=== PATIENT | male | born 1945 | race American Indian/Alaskan Native ===

== ENCOUNTER 2021-03-16 04:57 | Emergency (ER) | payer MEDICARE ==
[2021-03-16 05:22] VITALS: BP 138/87
[2021-03-16] MEDS ORDERED: WATER FOR IRRIG STERILE 250 ML BOTTLE IR ONE (06:49)
[2021-03-16] MEDS ORDERED: SODIUM CHLORIDE IRRI 500 ML 500 ML IR ONE (06:54)
[2021-03-16] MEDS ORDERED: oxyCODONE /ACETAMINOPHEN 5-325MG TAB PO ONE (07:07)
--- NOTE | 2021-03-16 07:50 | Emergency Department Report ---
ED Recheck HPI - General Chief Complaint: Urogenital-Male Stated Complaint: ABD PAIN/GROIN PAIN Time Seen by Provider: 03/16/21 07:22 Source: patient, family Mode of arrival: Ambulatory Limitations: No Limitations - History of Present Illness Initial Comments: 76 [place] he has a sanchez and it has not drained. He is in 10/10 pain. RN has been unable to flush and drain sanchez. states this happens often and they are in discussions with their primary physicians about a suprapubic catheter. MD Complaint: other Symptoms Since Prior Visit: no new symptoms - Related Data Allergies Allergy/AdvReac Type Severity Reaction Status Date / Time No Known Allergies Allergy Unverified 03/16/21 05:19 ED Review of Systems ROS: Stated complaint: ABD PAIN/GROIN PAIN Other details as noted in HPI Comment: All other systems reviewed and negative ED Past Medical Hx - Past Medical History Previous Medical History?: Yes Additional medical history: parkinsons disease. urinary retention with sanchez cath - Surgical History Past Surgical History?: Yes - Family History Family history: no significant - Social History Smoking Status: Never Smoker Substance Use Type: None ED Physical Exam - General Limitations: No Limitations General appearance: alert - Head Head exam: Present: atraumatic, normocephalic - Eye Eye exam: Present: normal appearance - ENT ENT exam: Present: mucous membranes moist - Neck Neck exam: Present: normal inspection - Respiratory Respiratory exam: Present: normal lung sounds bilaterally. Absent: respiratory distress - Cardiovascular Cardiovascular Exam: Present: regular rate, normal rhythm, tachycardia. Absent: systolic murmur, diastolic murmur, rubs, gallop - GI/Abdominal GI/Abdominal exam: Present: soft, normal bowel sounds - Rectal Rectal exam: Present: deferred - exam: Present: other - Extremities Exam Extremities exam: Present: normal inspection - Back Exam Back exam: Present: normal inspection - Neurological Exam Neurological exam: Present: alert, oriented X3 - Psychiatric Psychiatric exam: Present: flat affect - Skin Skin exam: Present: warm, dry, intact, normal color. Absent: rash ED Course Vital Signs 03/16/21 05:21 Temperature 97.7 F Pulse Rate 106 H Respiratory 18 Rate Blood Pressure 138/87 [Right] O2 Sat by Pulse 96 Oximetry ED Recheck [facility] - Core Measures Measure Exclusions: not indicated - Medical Decision Making KATIE placed new 20 F straight sanchez cath p RN was unable to flush/drain sanchez 800 ml urine obtained from cath sanchez to leg bag dc home with dc plan of care and pcp follow up.Pt and verbalize understanding of plan of care. Vital Signs 03/16/21 05:21 Temperature 97.7 F Pulse Rate 106 H Respiratory 18 Rate Blood Pressure 138/87 [Right] O2 Sat by Pulse 96 Oximetry Critical care attestation.: If time is entered above; I have spent that time in minutes in the direct care of this critically ill patient, excluding procedure time. ED Disposition Clinical Impression: Encounter for Sanchez catheter replacement, Urinary retention Disposition: DC-01 TO HOME OR SELFCARE Is pt being admited?: No Does the pt Need Aspirin: No Condition: Stable Additional Instructions: 20F regular cath placed to leg bag- 800 ml retention (blood tinged) Referrals: PRIMARY CARE, [Primary Care Provider] - 3-5 Days Time of Disposition: 07:49
[2021-03-16] MEDS ORDERED: WATER FOR IRRIG STERILE 250 ML BOTTLE IR SCH (08:00)
== END 2021-03-16 07:56 | disposition home or self-care (01) ==
LOC: ED 04:57
DX: R33.9 Retention of urine, unspecified (principal); Z46.6 Encounter for fitting and adjustment of urinary device
CPT/HCPCS: 51702; 99283